=== PATIENT | female | born 1960 | race Caucasian/White ===

== ENCOUNTER 2017-12-12 08:47 | Day surgery (SDC) | payer OTHER ==
[2017-12-12 09:40] VITALS: O2SAT 100
--- NOTE | 2017-12-12 10:14 | CP.SDSHP ---
Same Day Surgery H & P - Previous Medical/Surgical History Cardiac: Valvular Heart Disease Previous Surgical History: mitral valve replacement hysterectomy - Allergies Allergies: Allergies No Known Allergies Allergy (Verified 12/12/17 09:24) - Physical Exam Vital Signs: Vital Signs 12/12/17 09:00 Temperature 97.8 F Pulse Rate 60 Respiratory 16 Rate Blood Pressure 156/66 H O2 Sat by Pulse 100 Oximetry - Date & Time Date: 12/12/17 Time: 10:13 Short Stay Discharge - Short Stay Discharge Admitting Diagnosis/Reason for Visit: ENCOUNTER FOR SCREENING FOR MALIGNANT NEOPLASM OF Disposition: HOME/ ROUTINE
[2017-12-12] MEDS ORDERED: Midazolam 2 MG/2 ML VIAL ONE (10:28)
[2017-12-12] MEDS ORDERED: Propofol 10 mg/ml Inj (20 ML) ONE ×2 (10:28→10:36)
[2017-12-12 11:12] VITALS: TEMP 98
[2017-12-12 12:18] VITALS: BP 129/60; PULSE 66; RESP 12
== END 2017-12-12 12:00 | disposition home or self-care (01) ==
LOC: C.ENDO 08:47
PROVIDERS: ATTEND Colon & Rectal Surgery
DX: Z12.11 Encounter for screening for malignant neoplasm of colon (principal); D12.4 Benign neoplasm of descending colon; K62.1 Rectal polyp
CPT/HCPCS: 45380; 45388; 88305; J2250; J2704